=== PATIENT | female | born 1985 | race Caucasian/White ===

== ENCOUNTER → 2020-06-18 06:52 | Outpatient (CLI) | payer OTHER, SELFPAY ==
[2020-06-18 20:53] LABS: SARS-CoV-2 RNA PCR Negative
== END ==
PROVIDERS: PCP Nurse Practitioner Adult Health; Visit Provider Nurse Practitioner Adult Health
DX: R09.81 Nasal congestion (principal); Z20.822 Contact with and (suspected) exposure to COVID-19
CPT/HCPCS: C9803; U0003; U0005

== ENCOUNTER 2021-12-22 16:19 | Outpatient (CLI) | payer OTHER, SELFPAY ==
--- NOTE | ~2021-12-22 | US_ITS ---
EXAMINATION: US venous doppler LE RT DATE: 12/22/2021 16:57 INDICATION: Right lower limb pain TECHNIQUE: Shetty scale images without and with compression and Doppler images of the right lower extre mity veins were obtained. COMPARISON: None FINDINGS: The right common femoral vein, profunda femoral vein, femoral vein, popliteal vein, peronea l trunk, posterior tibial veins, and greater saphenous vein are patent. IMPRESSION: 1. Patent right lower extremity veins. No evidence of deep venous thrombosis. Reviewed, dictated and finalized at location A.
== END 2021-12-22 16:20 | disposition home or self-care (01) ==
PROVIDERS: PCP Nurse Practitioner Adult Health; Visit Provider Nurse Practitioner Adult Health
DX: M79.661 Pain in right lower leg (principal)
CPT/HCPCS: 93971

== ENCOUNTER 2022-07-21 08:55 | Outpatient (CLI) | payer OTHER, SELFPAY ==
[2022-07-21 20:52] LABS: Kit Draw Collected
== END 2022-07-21 08:56 | disposition home or self-care (01) ==
LOC: ANHGOSHLAB 08:56
PROVIDERS: PCP Internal Medicine; Visit Provider Clinical Nurse Specialist
DX: R79.89 Other specified abnormal findings of blood chemistry (principal); Z13.220 Encounter for screening for lipoid disorders; Z13.228 Encounter for screening for other metabolic disorders
CPT/HCPCS: 36415

== ENCOUNTER 2023-07-20 09:00 | Outpatient (CLI) | payer OTHER, SELFPAY ==
[2023-07-20 12:48] LABS: Basophils Percent Auto 0.7 % (0.2-1.2); Eosinophils Absolute Auto 0.1 K/mm3 (0-0.3); Eosinophils Percent Auto 1.9 % (0-4.4); Hemoglobin 14.2 g/dL (12.0-15.0); Immature Granulocyte Absolute 0.01 K/mm3 (0.00-0.031); Immature Granulocyte Percent A 0.2 % (0-0.5); Lymphocytes Absolute Auto 1.39 K/mm3 (0.9-3.2); Lymphocytes Percent Auto 32.9 % (18.3-44.2); Mean Corpuscular Hemoglobin 32.1 pg (26-34); Mean Corpuscular Volume 97.1 fl (80-100); Mean Platelet Volume 10.5 fl (7.4-10.4); Monocytes Absolute Auto 0.4 K/mm3 (0.1-0.6); Monocytes Percent Auto 8.8 % (2.6-8.5); Neutrophils Absolute Auto 2.3 K/mm3 (1.3-6.7); Neutrophils Percent Auto 55.5 % (45.5-73.1); Platelet Count Result 289 k/mm3 (150-375); Red Blood Count 4.43 M/mm3 (4.2-5.4); White Blood Count 4.2 K/mm3 (4.5-10.0)
[2023-07-20 13:01] LABS: Rheumatoid Factor < 12.0 IU/ML (<12)
[2023-07-20 13:07] LABS: Alanine Aminotransferase 19 U/L (6-35); Albumin Level 4.3 g/dL (3.5-5.1); Alkaline Phosphatase 47 U/L (38-126); Anion Gap 6 mmol/L (8-16); Aspartate Amino Transferase 39 U/L (14-36); Bilirubin,Total 0.6 mg/dL (0.2-1.3); Blood Urea Nitrogen 16 mg/dL (7-17); CRP < 0.5 mg/dL (<1.0); Carbon Dioxide 27 mmol/L (22-30); Chloride 106 mmol/L (98-107); Cholesterol 207 mg/dL (0-200); Estimated Glomerular Filt Rate > 60; Glucose 94 mg/dL (65-110); HDL Direct 49 mg/dL; Potassium 4.1 mmol/L (3.4-5.0); Sodium 139 mmol/L (137-145); Triglycerides 58 mg/dL (<150)
[2023-07-20 13:21] LABS: Erythrocyte Sedimentation Rate 13 mm/hr (0-20)
[2023-07-20 13:25] LABS: Hemoglobin A1C 5.2 % (<5.7)
[2023-07-20 13:26] LABS: LDL Cholesterol Direct 137 mg/dL
[2023-07-20 13:27] LABS: Vitamin D 25 Hydroxy 41.3 ng/mL
[2023-07-22 21:18] LABS: ANA Cascade Screen Negative (Negative)
[2023-07-23 06:55] LABS: Insulin Level Total 6.6 uIU/mL (<=18.4)
[2023-07-24 06:15] LABS: Thyroid Peroxidase Antibodies 2 IU/mL (<9)
== END 2023-07-20 09:01 | disposition home or self-care (01) ==
PROVIDERS: PCP Internal Medicine; Visit Provider Clinical Nurse Specialist
DX: E55.9 Vitamin D deficiency, unspecified (principal); F41.9 Anxiety disorder, unspecified; M79.10 Myalgia, unspecified site; R79.89 Other specified abnormal findings of blood chemistry; Z13.220 Encounter for screening for lipoid disorders; Z13.228 Encounter for screening for other metabolic disorders
CPT/HCPCS: 36415; 80053; 80061; 82306; 83036; 83525; 84443; 85025; 85652; 86038; 86140; 86225; 86235; 86364; 86376; 86430

== ENCOUNTER 2023-08-14 17:47 | Outpatient (CLI) | payer OTHER, SELFPAY ==
--- NOTE | ~2023-08-14 | XR_ITS ---
EXAM: XR_CERV2-3V_CR DATE: 08/14/2023 18:09 HISTORY: M25.521 - Pain in right elbow . COMPARISON: None available. FINDINGS: Craniocervical association and atlantoaxial joint are aligned, with minimal degenerative c hange. No prevertebral soft tissue swelling. Trace retrolisthesis at C5-6. Trace anterolisthesis at C 7-T1. Reversed cervical lordosis. Vertebral body heights are maintained. Mild disc space narrowing at C4-5. Moderate disc space narrowing and marginal osteophytosis at C5-6. Multilevel mild facet hypert rophy and sclerosis. IMPRESSION: Multilevel trace listheses. Multilevel degenerative disc disease, moderate at C5-6. Multi level mild cervical facet arthropathy. Reviewed, dictated and finalized at location K. IMPRESSION: Multilevel trace listheses. Multilevel degenerative disc disease, m oderate at C5-6. Multilevel mild cervical facet arthropathy.
--- NOTE | ~2023-08-14 | XR_ITS ---
EXAM: XR elbow RT 2V, XR elbow LT 2V DATE: 08/14/2023 18:09 HISTORY: M25.521 - Pain in right elbow . COMPARISON: None. FINDINGS: Normal mineralization. No fracture or dislocation. No lytic or blastic lesion. Joint space s are maintained. No erosion or periosteal change. Soft tissues within normal limits. IMPRESSION: Normal right and left elbow radiograph findings. Reviewed, dictated and finalized at location K. IMPRESSION: Normal right and left elbow radiograph findings.
== END 2023-08-14 17:48 | disposition home or self-care (01) ==
LOC: ANHIMG 17:48
PROVIDERS: PCP Internal Medicine; Visit Provider Clinical Nurse Specialist
DX: M25.522 Pain in left elbow (principal); M25.521 Pain in right elbow; M50.322 Other cervical disc degeneration at C5-C6 level
CPT/HCPCS: 72040; 73070

== ENCOUNTER 2023-09-26 08:00 | Outpatient (RCR) | payer OTHER, SELFPAY ==
--- NOTE | 2023-08-21 16:07 | OTOPEVAL1 ---
Assessment and note entered by Phoenix Butler, FAUSTO/Teodoro, CHT Evaluation Information 08/21/23 Assessment Status Evaluation Diagnosis Bilateral elbow pain Subjective Information Patient reports noticing onset of bilateral elbow pain ~Apr 2023. Unsure of the underlying cause. In Feb 2023 they began taking care of a pony, so increased UE demand with this. 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 Reporting severe pain, at times getting as bad as 10/10. Noticing increased pain at night time. Difficulties with gripping and lifting. No reports of paresthesia. Reported Pain Level Pain Score 6: Self Report Assessment OT Clinical Summary Patient referred to OT with bilateral elbow pain. Signs and symptoms are consistent with lateral epicondylitis. She also has symptoms of ulnar entrapment at the elbow exacerbated by elbow positioning. Skilled OT indicated for HEP instruction and progression, use of modalities, manual therapy, and strengthening to promote improved functional strength, reduced pain, and improved functional body mechanics. Plan of Care Interventions Therapeutic Exercise,Manual Therapy,Neuro Re- education,Therapeutic Activities,Hot Pack/Cold Pack,Check Out for Orthotic/Pr,Ultrasound,Paraffin OT Services Indicated Yes Treatment Frequency and 1-2x/week for 8 visits Duration These treatments will address the objective and functional deficits as defined above. The patient will be advanced safely and appropriately in order for the patient to progress towards his/her prior level of function. Additional exercises will be introduced and as well as a comprehensive home exercise program upon discharge, if needed, ?to ensure carryover of functional gains achieved in the clinic. This treatment plan has been reviewed and agreement upon by the patient.
--- NOTE | 2023-08-21 16:08 | OPREHPOC ---
Outpatient Therapy Plan of Care This is a Multidisciplinary Plan of Care that may contain components documented by all disciplines (PT, OT, and ST.) OT Problem 1 OT Problem #1 Knowledge Deficit OT Goal 1 Goal 1. Patient to be independent with instructed materials. Target Visit 8 OT Problem 2 OT Problem #2 Pain OT Goal 1 Goal 1. Patient to report reduced bilateral elbow pain to 4/10 at worst . Target Visit 8 OT Problem 3 OT Problem #3 Impaired Strength OT Goal 1 Goal 1. Patient to be able to complete bilateral wrist strengthening in all planes with 2 lb. free weight x10 reps without pain. Target Visit 8 OT Problem 4 OT Problem #4 Impaired Flexibility OT Goal 1 Goal 1. Patient to be able to move through ulnar nerve glide exercises without pain. Target Visit 8
--- NOTE | 2023-09-26 08:55 | OTOPDC ---
Assessment and note entered by Phoenix Butler, FAUSTO/Teodoro, CHT Evaluation Information Assessment Status Discharge Diagnosis Bilateral elbow pain Subjective Information Patient reports limited progress. States she has continued elbow pains and gross weakness. Difficulties lifting pots/pans and doing her hair. She reports she continues to experience 10/10 pain at times. Continues to notice increased pain at night time. She reports some relief from therapy sessions, but the pain always comes back. She has been wearing tennis elbow braces regularly , reports no changes in her pain with these. Reported Pain Level Pain Score 7: Self Report Assessment OT Clinical Summary Patient has participated in 6 OT sessions focused on treating bilateral elbow pain. She presents today for reassessment reporting very minimal progress. She continues to have bilateral elbow pain that is exacerbated with movement and appears to get worse at night. She continues to have gross weakness that limits B UE use for ADLs. Unfortunately the patient has not made much progress with OT. Discussed benefits of a Cortisone injection to target the lateral epicondyles vs. treatment focused more proximally on her neck - patient may benefit from PT services to rule out cervical radiculopathy. No further skilled OT indicated at this time. Plan of Care OT Services Indicated No
== END 2023-09-26 10:53 | disposition home or self-care (01) ==
LOC: ANHOT 08:00
PROVIDERS: PCP Internal Medicine; Visit Provider Clinical Nurse Specialist
DX: M25.521 Pain in right elbow (principal); M25.522 Pain in left elbow
CPT/HCPCS: 97018; 97035; 97110; 97140; 97166

== ENCOUNTER 2023-11-06 07:10 | Outpatient (CLI) | payer OTHER, SELFPAY ==
--- NOTE | ~2023-11-06 | MR_ITS ---
MR cervical spine wo con Ordering provider: CAPRICE Guillermo History: 38 years Female with . M54.12 - Radiculopathy, cervical region . Comparison: None. Technique: MRI cervical spine without contrast. FINDINGS: CERVICAL SPINAL CORD/CRANIAL CERVICAL JUNCTION: Normal in signal and caliber. Slightly prominent cent ral canal of the cord is noted. Early syringomyelia cannot be excluded. CERVICAL VERTEBRAL BODIES: Normal height and alignment. Normal marrow signal. DISK SPACES: Narrowing of the disc C5-C6. C2-C3: No stenosis. C3-C4: No stenosis. C4-C5: No stenosis. C5-C6: No stenosis. Diffuse disc bulge with slight bilateral narrowing of the foramina. No definite r oot compression seen. C6-C7: No stenosis. Mild diffuse disc bulge. C7-T1: No stenosis. VISUALIZED PARASPINOUS SOFT TISSUES: Normal. IMPRESSION: 1. No acute osseous abnormality. 2. Slightly prominent central canal of the spinal cord. Follow-up advised. 3. Diffuse disc bulge at the level of C5-C6 and C6-C7. No spinal canal stenosis seen. Reviewed, dictated and finalized at location A. IMPRESSION: 1. No acute osseous abnormality. 2. Slightly prominent central canal of the spinal cord. Follow-up advised. 3. Diffuse disc bulge at the level of C5-C6 and C6-C7. No spinal canal stenosi s seen.
== END 2023-11-06 07:11 ==
PROVIDERS: PCP Internal Medicine; Visit Provider Clinical Nurse Specialist
DX: M50.322 Other cervical disc degeneration at C5-C6 level (principal); M50.323 Other cervical disc degeneration at C6-C7 level
CPT/HCPCS: 72141

== ENCOUNTER 2024-03-18 13:47 | Outpatient (CLI) | payer OTHER, SELFPAY ==
--- NOTE | ~2024-03-18 | MM_ITS ---
EXAMINATION: MM screening kristie BI w gisela HISTORY: Screening mammogram TECHNIQUE: Craniocaudal and mediolateral oblique 3-D tomosynthesis images were obtained and synthetic 2-D images were generated. CAD analysis was submitted and interpreted. COMPARISON: No prior mammogram is available for comparison at this institution. BREAST PARENCHYMAL COMPOSITION:Dense: The breasts are heterogeneously dense, which may obscure small masses. FINDINGS: No suspicious mass, calcification, or architectural distortion are identified in either danica ast to suggest malignancy. There has been no suspicious interval change. IMPRESSION: No mammographic evidence of malignancy. Recommend routine screening mammography in one year. BI-RADS Category 1: Negative Reviewed, dictated and finalized at location . GENERALIST
== END 2024-03-18 13:48 | disposition home or self-care (01) ==
PROVIDERS: PCP Clinical Nurse Specialist
DX: Z12.31 Encounter for screening mammogram for malignant neoplasm of breast (principal)
CPT/HCPCS: 77063; 77067

== ENCOUNTER 2024-12-19 09:32 | Outpatient (CLI) | payer OTHER, SELFPAY ==
--- NOTE | ~2024-12-19 | US_ITS ---
EXAMINATION: US pelvic complete w TV INDICATION: Menorrhagia Comparison:No prior studies for comparison. TECHNIQUE: Multiple transabdominal and endovaginal sonographic images of the pelvis performed. FINDINGS: The uterus measures 8.8 x 4.3 x 5.1 cm. The endometrial complex measures 8 mm. The right ovary measures 3.5 x 2.2 x 3.2 cm and the left ovary measures 3.4 x 2.5 x 3.2 cm. There is a minimally complicated 1.5 cm right ovarian cyst. There are small follicles in each ovary. Normal do ppler signal in both ovaries. There is no free fluid in the pelvis. There are no abnormal masses seen on either side. IMPRESSION: 1. Minimally complicated right ovarian cyst measuring 1.5 cm. Reviewed, dictated and finalized at location A.
== END 2024-12-19 09:33 | disposition home or self-care (01) ==
LOC: MICIMG 09:32
PROVIDERS: PCP Clinical Nurse Specialist; Visit Provider Obstetrics & Gynecology
DX: N92.0 Excessive and frequent menstruation with regular cycle (principal)
CPT/HCPCS: 76830; 76856

== ENCOUNTER 2025-03-20 13:28 | Outpatient (CLI) | payer OTHER, SELFPAY ==
--- NOTE | ~2025-03-20 | MM_ITS ---
EXAMINATION: MM screening kristie BI w gisela HISTORY: Screening TECHNIQUE: Craniocaudal and mediolateral oblique 3-D tomosynthesis images were obtained and synthetic 2-D images were generated. CAD analysis was submitted and interpreted. COMPARISON: 03/18/2024 BREAST PARENCHYMAL COMPOSITION: Dense: The breasts are heterogeneously dense, which may obscure small masses FINDINGS: There is no evidence of suspicious mass, calcification, or architectural distortion to suggest malignancy in either breast. There has been no suspicious interval change. IMPRESSION: 1. No mammographic evidence of malignancy. 2. Recommend routine screening mammography in one year. BI-RADS Category 1: Negative Reviewed, dictated and finalized at location B. [facility]
== END 2025-03-20 13:29 | disposition home or self-care (01) ==
LOC: MICIMG 13:29
PROVIDERS: PCP Obstetrics & Gynecology; Visit Provider Clinical Nurse Specialist
DX: Z12.31 Encounter for screening mammogram for malignant neoplasm of breast (principal)
CPT/HCPCS: 77063; 77067